=== PATIENT | male | born 1965 | race Caucasian/White ===

== ENCOUNTER → 2016-11-01 | Day surgery (SDC) | payer OTHER ==
[~2016-11-01] MED LIST: CLEOCIN150 MG PO; NO MEDICATIONS; TYLENOL #3 PO
--- NOTE | ~2016-11-01 | OR ---
Unit #: [id number] #: [id number] Patient: YOUSIF DUMONT [id number] [address] [id number] O MR#: [id number] NAME: YOUSIF DUMONT ROOM: Date of Procedure: 11/01/2016 Admission Date: 11/01/2016 Surgeon: Barak Mane M.D. : 1965 Attending Physician: Barak Mane M.D. Primary Care Physician: Royal Roldan M.D. OPERATIVE REPORT PRIMARY CARE PHYSICIAN Royal Roldan M.D. PREOPERATIVE DIAGNOSIS Colorectal cancer screening in an average-risk patient. PROCEDURES PERFORMED Colonoscopy and biopsy. POSTOPERATIVE DIAGNOSES 1. Single sessile polyp in the mid transverse colon. This was diminutive and was removed using cold biopsy forceps. 2. The examination was otherwise normal up to cecum and terminal ileum. The quality of the prep was excellent. RECOMMENDATIONS Follow up the results of polyp histology and repeat colonoscopy in 5 years. SEDATION USED MAC. DESCRIPTION OF PROCEDURE Following detailed explanation of potential risks and complications of a colonoscopy, namely perforation, bleeding, and complications related to sedation, the patient was brought to GI lab and laid in the left lateral decubitus position. A digital rectal examination was performed, which was normal. Lubricated tip of the Olympus video colonoscope was inserted through the anus and advanced under direct vision. The scope was advanced past rectosigmoid into descending colon. No diverticula were seen in this area. The scope tip was then navigated all the way up to cecum with visualization of the ileocecal valve and the appendiceal orifice. Preparation was excellent with good visualization and photodocumentation was obtained. Last several inches of the terminal ileum were also visualized after intubation of the ileocecal valve and appeared normal. Successive segments of the colonic mucosa were examined upon withdrawal. A single sessile polyp was noted in mid transverse colon. This was diminutive and was removed using cold biopsy forceps. No additional polyps were noted. The patient did not have any diverticulosis nor any hemorrhoids. The scope was then withdrawn and the patient returned to the recovery area. He tolerated the procedure without any postprocedure complications. Unit #: [id number] #: [id number] Patient: YOUSIF DUMONT Dictated by... Neisha Avina TD: 11/01/2016 17:21 JOB #: [id number] OPERATIVE REPORT X Barak Mane MD X PROCEDURE OPERATIVE NOTE
== END | disposition home or self-care (01) ==
LOC: COPS 08:35
DX: Z12.11 Encounter for screening for malignant neoplasm of colon (principal); D12.3 Benign neoplasm of transverse colon; Z98.890 Other specified postprocedural states
CPT/HCPCS: 88305; J2250